=== PATIENT | male | born 1995 | race Caucasian/White ===

== ENCOUNTER 2016-11-20 22:30 | Emergency (ER) | payer BC ==
[~2016-11-20] VITALS: Ht 188 cm; Wt 68.2 kg
[~2016-11-20 22:30] MED LIST: VYVANSE30 MG PO
[2016-11-20 22:36] VITALS: BP 123/50; TEMP 97.4
[2016-11-21 00:08] VITALS: PULSE 90
== END 2016-11-21 00:07 | disposition home or self-care (01) ==
LOC: COL.ER 22:30
DX: S61.211A Laceration without foreign body of left index finger without damage to nail, initial encounter (principal); W26.0XXA Contact with knife, initial encounter; Z23 Encounter for immunization